=== PATIENT | female | born 1955 | race Caucasian/White ===

== ENCOUNTER 2020-09-24 12:42 | Emergency (ER) | payer OTHER, MEDICAID ==
[~2020-09-24] VITALS: Ht 154.9 cm; Wt 77.1 kg
[2020-09-24 12:47] VITALS: BP 116/62
--- NOTE | 2020-09-24 12:47 | NUR ---
PT W/C ASSISTED TO BED 1. DR TOLENTINO AT BEDSIDE
--- NOTE | 2020-09-24 12:48 | NUR ---
64 Y/O FEMALE C/O 09/24 NONRADIATING CONSTANT CHEST PAIN X2 DAYS. PT ALSO C/O SOB, DYSPNEA ON EXERTION AND FEELING WEAK X2 DAYS. PT STATED SHE WAS +COVID X3 WEEKS AGO WITH SOB, LOSS OF TASTE AND APPETITE. TESTED NEGATIVE FOR COVID 09/17/20. PT DENIES COUGH, DENIES N/V/D/FEVER. PT IN GOWN, ON MICROFICHE DUPLICATOR. PT A/O X4. BED IN LOWEST POSITION, BRAKES LOCKED, X1 SIDERAIL UP FOR SAFETY. PMH:ME 2014- ANGIOPLASTY, DM, HTN, HYPERTHYROID NKDA
--- NOTE | 2020-09-24 13:22 | NUR ---
BLOOD WORK TAKEN BEDSIDE. COVID DEYSI, RSV, AND INFLUENZA SWAB TAKEN BESIDE. ALL HANDED TO PARTS LISTER BEDSIDE
[2020-09-24] MEDS: ASPIRIN 81 MG TAB.CHEW PO ONE ×2 (13:23→13:24)
--- NOTE | 2020-09-24 13:24 | NUR ---
XRAY BEDSIDE WITH PT
[2020-09-24 13:34] LABS: BASOPHILS # (AUTO) 0.1 K/uL (0.00-0.22); BASOPHILS % (AUTO) 0.6 % (0.0-2.0); EOSINOPHILS % (AUTO) 0.2 % (0.0-4.0); HEMATOCRIT 37.3 % (36-48); HEMOGLOBIN 12.6 g/dL (12.0-16.0); LYMPHOCYTES # (AUTO) 0.9 K/uL (2.5-16.5); LYMPHOCYTES % (AUTO) 8.3 % (20.5-51.1); MEAN CORPUSCULAR HEMOGLOBIN 30 pg (27-31); MEAN CORPUSCULAR HGB CONC 34 g/dL (33-37); MEAN CORPUSCULAR VOLUME 87.6 fL (80-94); MONOCYTES # (AUTO) 0.3 K/uL (0.8-1.0); MONOCYTES % (AUTO) 3.3 % (1.7-9.3); NEUTROPHILS # (AUTO) 9.1 K/uL (1.8-7.7); NEUTROPHILS % (AUTO) 87.6 % (42.2-75.2); PLATELET COUNT (AUTO) 265 K/uL (140-450); RED BLOOD CELL COUNT(AUTO) 4.26 MIL/uL (4.20-5.40); RED CELL DISTRIBUTION WIDTH 14.1 % (11.6-13.7); WHITE BLOOD COUNT (AUTO) 10.4 K/uL (4.8-10.8)
[2020-09-24 13:51] LABS: PROTHROMBIN TIME 10.4 secs (10.8-13.4)
[2020-09-24 13:56] LABS: C-REACTIVE PROTEIN QUANT 2.8 mg/dL (0.0-0.9)
[2020-09-24 14:09] LABS: RSV NEGATIVE (NEGATIVE)
[2020-09-24 14:18] LABS: ALBUMIN 3.2 g/dL (3.4-5.0); ANION GAP 18.4 (8-16); CREATININE 0.7 mg/dL (0.6-1.3); LACTATE DEHYDROGENASE 353 U/L (81-234); POTASSIUM 5.4 mmol/L (3.5-5.1); TOTAL BILIRUBIN 0.5 mg/dL (0.0-1.0)
--- NOTE | 2020-09-24 14:59 | NUR ---
PT RESTING IN BED WITH EVEN AND UNLABORED RESPIRATIONS. PT ON [employer], WILL CONTINUE TO MONITOR
[2020-09-24] MEDS ORDERED: DEXAMETHASONE 4 MG TAB PO ONE (15:00)
[2020-09-24] MEDS ORDERED: DEC4 PO (15:01)
[2020-09-24] MEDS ORDERED: DOXY-565 PO (15:01)
[2020-09-24] MEDS ORDERED: CRUSHER, PILL MC ONE (15:14)
[2020-09-24] MEDS ORDERED: COMMUNICATION ORDER MC ONE (15:55)
[2020-09-24] MEDS ORDERED: [UNRECOGNIZED DRUG - OTHER] IV SCH (16:40)
--- NOTE | 2020-09-24 16:55 | NUR ---
INFUSION OF REGERON STARTED. PT EDUCATED ON MEDICATION PURPOSE AND GIVEN FACT SHEET.
--- NOTE | 2020-09-24 17:15 | NUR ---
MEDICATION INFUSING WITHOUT DIFFICULTY. NO ADVERSE REACTIONS.
--- NOTE | 2020-09-24 17:25 | NUR ---
INFUSION COMPLETE. NO ADVERSE REACTIONS.
--- NOTE | 2020-09-24 18:50 | NUR ---
FAMILY IN LOBBY AWAITING DISCHARGE.
--- NOTE | 2020-09-24 19:00 | NUR ---
Patient discharged with v/s stable. Written and verbal after care instructions given and explained. Patient alert, oriented and verbalized understanding of instructions. Ambulatory with steady gait. All questions addressed prior to discharge. ID band removed. Patient advised to follow up with PMD. Rx of DOXYCYLINE AND DECADRON given. Patient educated on indication of medication including possible reaction and side effects. Opportunity to ask questions provided and answered.
--- NOTE | 2020-09-24 19:00 | NUR ---
IV removed, catheter intact and site benign. Applied folded 4x4 gauze and tape to stop bleeding.
[2020-09-24 19:04] VITALS: BP 128/73
--- NOTE | 2020-09-24 19:23 | NUR ---
--- LATE ENTRY: CRITICAL VALUE OF LACTIC ACID 2.2 RECEIVED POST DISCHARGE, DR DIXON AWARE, NO FURTHER ORDERS RECEIVED.
== END 2020-09-24 19:00 | disposition home or self-care (01) ==
LOC: MED 12:42
DX: J18.9 Pneumonia, unspecified organism (principal); Z20.822 Contact with and (suspected) exposure to COVID-19; E11.9 Type 2 diabetes mellitus without complications; I10 Essential (primary) hypertension; E07.9 Disorder of thyroid, unspecified; I25.2 Old myocardial infarction; Z90.49 Acquired absence of other specified parts of digestive tract; Z98.890 Other specified postprocedural states
CPT/HCPCS: 36415; 36600; 71045; 80053; 82550; 82728; 82803; 83605; 83615; 83880; 84484; 85025; 85379; 85384; 85610; 85730; 86140; 87040; 87420; 87804; 93005; 96360; 99285

== ENCOUNTER 2020-10-01 17:39 | Emergency (ER) | payer OTHER, MEDICAID ==
[~2020-10-01] VITALS: Ht 160 cm; Wt 77.1 kg
[~2020-10-01 17:39] MED LIST: DEC4 PO; DOXY-565 PO
[2020-10-01 17:49] VITALS: BP 155/64
--- NOTE | 2020-10-01 17:57 | NUR ---
MARILEED MADE AWARE OF PT STATUS
[2020-10-01 18:22] LABS: BASOPHILS # (AUTO) 0.1 K/uL (0.00-0.22); BASOPHILS % (AUTO) 0.9 % (0.0-2.0); EOSINOPHILS # (AUTO) 0.1 K/uL (0-0.4); EOSINOPHILS % (AUTO) 1.3 % (0.0-4.0); HEMATOCRIT 37.9 % (36-48); HEMOGLOBIN 12.6 g/dL (12.0-16.0); LYMPHOCYTES # (AUTO) 2.3 K/uL (2.5-16.5); MEAN CORPUSCULAR HEMOGLOBIN 29 pg (27-31); MEAN CORPUSCULAR HGB CONC 33 g/dL (33-37); MONOCYTES # (AUTO) 0.7 K/uL (0.8-1.0); MONOCYTES % (AUTO) 7.1 % (1.7-9.3); NEUTROPHILS # (AUTO) 6.2 K/uL (1.8-7.7); NEUTROPHILS % (AUTO) 65.7 % (42.2-75.2); PLATELET COUNT (AUTO) 217 K/uL (140-450); WHITE BLOOD COUNT (AUTO) 9.4 K/uL (4.8-10.8)
[2020-10-01 18:39] LABS: ALBUMIN 3.6 g/dL (3.4-5.0); ANION GAP 10.2 (8-16); CARBON DIOXIDE 29.3 mmol/L (21-32); CREATININE 0.9 mg/dL (0.6-1.3); POTASSIUM 3.5 mmol/L (3.5-5.1); TOTAL BILIRUBIN 0.4 mg/dL (0.0-1.0)
[2020-10-01] MEDS ORDERED: IBUP-2213 PO (21:53)
[2020-10-01 22:20] VITALS: BP 142/83
== END 2020-10-01 22:20 | disposition home or self-care (01) ==
LOC: MED 17:39
DX: R07.9 Chest pain, unspecified (principal); M79.602 Pain in left arm; R42 Dizziness and giddiness; I11.9 Hypertensive heart disease without heart failure; E07.9 Disorder of thyroid, unspecified; E11.9 Type 2 diabetes mellitus without complications
CPT/HCPCS: 36415; 71045; 80053; 83880; 84484; 85025; 93005; 99285

== ENCOUNTER 2020-12-16 18:46 | Emergency (ER) | payer OTHER, MEDICAID ==
[~2020-12-16] VITALS: Ht 154.9 cm; Wt 82.1 kg
[~2020-12-16 18:46] MED LIST changes: +IBUP-2213 PO
[2020-12-16 18:58] VITALS: BP 205/114
--- NOTE | 2020-12-16 19:05 | NUR ---
PT AMB TO BED 11
[2020-12-16 19:22] VITALS: BP 148/66
--- NOTE | 2020-12-16 19:36 | NUR ---
PT AMBULATED TO BED 04.
--- NOTE | 2020-12-16 19:55 | NUR ---
PT PRESENTED TO THE ED W/ CC OF HEADACHE, LEFT LEG HEAVINESS AND SEEING BLACK SPOTS ON THE LEFT EYE, PAIN SCALE OF 9/10, PT UZBEK SPEAKING ONLY, PT DAUGHTER ABLE TO TRANSLATE, PT SHOWING NO OTHER SIGNS OF ACUTE DISTRESS AT THIS MOMENT PMH: STROKE 2016, [place] 2015, DM, HTN, THYROID NKA
[2020-12-16 19:56] LABS: BASOPHILS # (AUTO) 0.1 K/uL (0.00-0.22); BASOPHILS % (AUTO) 0.6 % (0.0-2.0); EOSINOPHILS # (AUTO) 0.1 K/uL (0-0.4); EOSINOPHILS % (AUTO) 1.3 % (0.0-4.0); HEMATOCRIT 40.3 % (36-48); HEMOGLOBIN 13.5 g/dL (12.0-16.0); LYMPHOCYTES # (AUTO) 2.6 K/uL (2.5-16.5); LYMPHOCYTES % (AUTO) 28.3 % (20.5-51.1); MEAN CORPUSCULAR HEMOGLOBIN 30 pg (27-31); MEAN CORPUSCULAR HGB CONC 33 g/dL (33-37); MEAN CORPUSCULAR VOLUME 88.2 fL (80-94); MONOCYTES # (AUTO) 0.4 K/uL (0.8-1.0); MONOCYTES % (AUTO) 4.1 % (1.7-9.3); NEUTROPHILS # (AUTO) 6.1 K/uL (1.8-7.7); NEUTROPHILS % (AUTO) 65.7 % (42.2-75.2); PLATELET COUNT (AUTO) 183 K/uL (140-450); RED BLOOD CELL COUNT(AUTO) 4.57 MIL/uL (4.20-5.40); RED CELL DISTRIBUTION WIDTH 14.9 % (11.6-13.7); WHITE BLOOD COUNT (AUTO) 9.3 K/uL (4.8-10.8)
--- NOTE | 2020-12-16 20:07 | NUR ---
PT TAKEN TO CT
[2020-12-16 20:10] LABS: ALBUMIN 4.1 g/dL (3.4-5.0); ANION GAP 14.5 (8-16); CREATININE 0.8 mg/dL (0.6-1.3); POTASSIUM 3.5 mmol/L (3.5-5.1); TOTAL BILIRUBIN 0.5 mg/dL (0.0-1.0)
--- NOTE | 2020-12-16 20:36 | NUR ---
ERMD AT BEDSIDE
[2020-12-16] MEDS ORDERED: KETOROLAC 60 MG/2 ML VIAL IM ONE (20:45)
[2020-12-16] MEDS ORDERED: ACET-8386 PO (20:59)
[2020-12-16] MEDS ORDERED: AZIT250T4 PO (20:59)
[2020-12-16] MEDS ORDERED: IBUP-2213 PO (20:59)
--- NOTE | 2020-12-16 20:59 | NUR ---
ADMINISTERED ERMD MED ORDERS
--- NOTE | 2020-12-16 21:02 | NUR ---
Patient discharged with v/s stable. Written and verbal after care instructions given and explained. Patient verbalized understanding. Ambulatory with steady gait. All questions addressed prior to discharge. Advised to follow up with PMD.
[2020-12-16 21:03] VITALS: BP 148/66
== END 2020-12-16 21:02 | disposition home or self-care (01) ==
LOC: MED 18:46
DX: J18.9 Pneumonia, unspecified organism (principal); R51.9 Headache, unspecified; I25.2 Old myocardial infarction; I10 Essential (primary) hypertension; E11.9 Type 2 diabetes mellitus without complications; E05.90 Thyrotoxicosis, unspecified without thyrotoxic crisis or storm; Z98.890 Other specified postprocedural states; Z79.1 Long term (current) use of non-steroidal anti-inflammatories (NSAID); Z79.2 Long term (current) use of antibiotics; Z79.899 Other long term (current) drug therapy
CPT/HCPCS: 36415; 70450; 71045; 80053; 81002; 83880; 84484; 85025; 93005; 96372; 99285; J1885; Q0092